=== PATIENT | male | born 1985 | race African-American/Black ===

== ENCOUNTER 2024-03-07 17:20 | Emergency (ER) | payer OTHER ==
[~2024-03-07] VITALS: Ht 172.7 cm; Wt 60.3 kg
[2024-03-07 18:17] VITALS: BP 145/103; PULSE 109; RESP 14; TEMP 98.6; O2SAT 98
[2024-03-07] MEDS ORDERED: CYCL-837 PO (19:11)
[2024-03-07] MEDS ORDERED: ACET500T58 PO (19:11)
== END 2024-03-07 19:43 | disposition home or self-care (01) ==
LOC: ER 17:20
DX: S39.012A Strain of muscle, fascia and tendon of lower back, initial encounter (principal); E11.9 Type 2 diabetes mellitus without complications; F15.90 Other stimulant use, unspecified, uncomplicated; Z79.899 Other long term (current) drug therapy; V43.63XA Car passenger injured in collision with pick-up truck in traffic accident, initial encounter; Y93.89 Activity, other specified; Y92.411 Interstate highway as the place of occurrence of the external cause; Y99.8 Other external cause status
CPT/HCPCS: 72100